=== PATIENT | female | born 1995 | race African-American/Black ===

== ENCOUNTER 2016-05-30 04:57 | Emergency (ER) | payer SELFPAY ==
[~2016-05-30] VITALS: Ht 170.2 cm; Wt 79.1 kg
[~2016-05-30 04:57] MED LIST: CIPR-9 PO
[2016-05-30 05:03] VITALS: BP 131/87; PULSE 69; RESP 20; TEMP 97.4; O2SAT 100
[2016-05-30] MEDS ORDERED: CORICAP PO (05:18)
[2016-05-30] MEDS ORDERED: PHEN1LIQ60 (05:18)
[2016-05-30] MEDS ORDERED: IBUP-232 PO (05:28)
[2016-05-30] MEDS ORDERED: IBUPROFEN 800 MG TAB PO ONE (05:30)
--- NOTE | 2016-05-30 05:30 | PD ---
HPI Chief Complaint: Cold / Flu Symptoms Time Seen by Provider: 05:16 Travel History International Travel<30 days: No Contact w/Intl Traveler<30days: No Traveled to known affect area: No History of Present Illness HPI The patient is a 20-year-old female that complains of a mild cough, chest congestion since this morning. The patient's main complaint is it hurts in the substernal area to take a deep breath. She denies any fever, chills or shortness of breath. She denies any nausea, vomiting or diarrhea. She states is no possibility of and she does not smoke. 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 She denies any sore throat or ear pain. [facility] Past Medical History ADD: Yes Diminished Hearing: No Immunizations Current: No ?: Unknown LMP: 04/24/16 : 0 Para: 0 Miscarriage: 0 : 0 Social History Alcohol Use: No Tobacco Use: No Substance Use: No Allergies-Medications (Allergen,Severity, Reaction): Coded Allergies: No Known Allergies (Verified , 01/29/16) Reported Meds & Prescriptions Reported Meds & Active Scripts Active Reported Nyquil Severe Cold/Flu Liq (Lddenagnqamld-Lfasqrnlam-QN-Apap Liq) 5-6.25-10-325 Mg/15 Ml Liq Coricidin HBP Chest Congestion (Dextromethorphan-Guaifenesin) 10-200 Mg Cap 1 Cap PO Q4H PRN Review of Systems Except as stated in HPI: all other systems reviewed are Neg Physical Exam Narrative GENERAL: The patient is alert, oriented 3 in no respiratory distress. Her vital signs are normal. Oximetry is 100%. SKIN: Warm and dry. HEAD: Atraumatic. Normocephalic. EYES: Pupils equal and round. No scleral icterus. No injection or drainage. ENT: No nasal bleeding or discharge. Mucous membranes pink and moist. Neither tympanic membrane can be seen due to wax in the canals. The throat shows no erythema, exudate or abscess and appears normal. NECK: Trachea midline. No JVD. There is no meningismus and no enlarged nodes are present on the anterior cervical chain. CARDIOVASCULAR: Regular rate and rhythm. No murmur appreciated. RESPIRATORY: No accessory muscle use. Clear to auscultation. Breath sounds equal bilaterally. GASTROINTESTINAL: Abdomen soft, non-tender, nondistended. Hepatic and splenic margins not palpable. No guarding or rebound is present. MUSCULOSKELETAL: No obvious deformities. No clubbing. No cyanosis. No edema. NEUROLOGICAL: Awake and alert. No obvious cranial nerve deficits. Motor grossly within normal limits. Normal speech. PSYCHIATRIC: Appropriate mood and affect; insight and judgment normal. Data Data Last Documented VS Vital Signs Date Time Temp Pulse Resp B/P Pulse Ox O2 Delivery O2 Flow Rate FiO2 05/30/16 05:15 18 100 Room Air 05/30/16 05:03 97.4 69 131/87 [facility] Medical Decision Making Medical Screen Exam Complete: Yes Emergency Medical Condition: Yes Medical Record Reviewed: Yes Differential Diagnosis Pneumonia, bronchitis, viral upper respiratory infection, pharyngitis, ear infection, intestinal infection Narrative Course The patient appears to have a viral upper respiratory infection. Plan: She will get a prescription for Motrin and she will get a 2 day work excuse. She is to increase liquids and rest during these 2 days. Diagnosis Primary Impression: Viral upper respiratory infection Additional Instructions: I am hoping that Motrin will help. Chest discomfort. Take the Motrin regularly , 1 tablet 3 times daily. Also, we will give you a 2 day work excuse. Remember that viruses reduce your resistance to pneumonias, ear infections and other bacterial infections and should you get worse, return to the emergency department or follow-up with your primary care physician next week. In these 2 days off IOP rest and increase her liquid intake and allow your body to fight this virus. Med/Other Pt SpecificInfo: Prescription(s) given Scripts Ibuprofen 600 Mg [id number] Mg PO TID #30 TAB Ref 0 Prov:Holden Mills MD 05/30/16 Disposition: DISCHARGE HOME Condition: Stable Holden Mills MD May 30, 2016 05:30
== END 2016-05-30 05:45 | disposition home or self-care (01) ==
LOC: PHED 04:57
DX: J06.9 Acute upper respiratory infection, unspecified (principal)
CPT/HCPCS: 99283

== ENCOUNTER 2016-06-24 12:36 | Emergency (ER) | payer SELFPAY ==
[~2016-06-24] VITALS: Ht 170.2 cm; Wt 79.0 kg
[~2016-06-24 12:36] MED LIST changes: -CIPR-9 PO; +CORICAP PO; +IBUP-232 PO; +PHEN1LIQ60
[2016-06-24 12:43] VITALS: BP 124/73; PULSE 87; RESP 16; TEMP 98.1; O2SAT 100
[2016-06-24 13:01] LABS: BLOOD, URINE LARGE (NEG); GLUCOSE,URINE NEG (NEG); KETONE, URINE NEG (NEG)
[2016-06-24] MEDS ORDERED: SODIUM CHLORIDE 0.9% FLUSH 5 ML FLUSH IVF PRN (13:15)
[2016-06-24 13:18] LABS: METHOD OF COLLECTION CLEAN CATCH; NITRITE,URINE POS (NEG)
[2016-06-24 13:19] LABS: RBC, URINE INNUM /hpf (0-3); SQUAMOUS EPITHELIAL CELL URINE > 8 /hpf (0-5); URINE COLOR YELLOW (YELLW/STRAW)
--- NOTE | 2016-06-24 13:19 | PD ---
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 Pain started last night, is constant, sharp, moderate, worse with urination. She noticed some pinkish vaginal discharge. No foul order. Last measured. Was 04/30. No fevers or chills. No history of abdominal surgeries. She is requesting a blood test for . [facility] Past Medical History ADD: Yes Diminished Hearing: No Immunizations Current: No Tetanus Vaccination: < 5 Years Influenza Vaccination: No ?: Unknown LMP: 04/30/16 : 0 Para: 0 Miscarriage: 0 : 0 Past Surgical History Surgical History: No Previous Surgery Social History Alcohol Use: No Tobacco Use: No Substance Use: No Allergies-Medications (Allergen,Severity, Reaction): Coded Allergies: No Known Allergies (Verified , 06/24/16) Reported Meds & Prescriptions Reported Meds & Active Scripts Active No Active Prescriptions or Reported Medications Review of Systems Except as stated in HPI: all other systems reviewed are Neg Physical Exam Narrative GENERAL: Well-developed, well-nourished, comfortable, no acute distress. SKIN: Warm and dry. HEAD: Atraumatic. Normocephalic. EYES: Pupils equal and round. No scleral icterus. No injection or drainage. ENT: Mucous membranes pink and moist. CARDIOVASCULAR: Regular rate and rhythm. RESPIRATORY: No accessory muscle use. Clear to auscultation. Breath sounds equal bilaterally. GASTROINTESTINAL: Abdomen soft, nondistended. Mild suprapubic tenderness without peritoneal signs. Rest of abdomen is soft and nontender. 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 Normal external genitalia. Normal cervix. Scant whitish/fcd-jkpo-yatnxvoh vaginal discharge. Mild suprapubic tenderness. No adnexal masses or tenderness. MUSCULOSKELETAL: No obvious deformities. No clubbing. No cyanosis. No edema. NEUROLOGICAL: Awake and alert. No obvious cranial nerve deficits. Motor grossly within normal limits. Normal speech. PSYCHIATRIC: Appropriate mood and affect; insight and judgment normal. Data Data Last Documented VS Vital Signs Date Time Temp Pulse Resp B/P Pulse Ox O2 Delivery O2 Flow Rate FiO2 06/24/16 12:43 98.1 87 16 124/73 100 Orders Urinalysis - C+S If Indicated (06/24/16 12:46) Ed Urine Pregnancytest Poc (06/24/16 12:59) Beta Hcg (Quant/Titer) (06/24/16 13:11) Complete Blood Count With Diff (06/24/16 13:11) Comprehensive Metabolic Panel (06/24/16 13:11) Iv Access Insert/Monitor (06/24/16 13:11) Ecg Monitoring (06/24/16 13:11) Oximetry (06/24/16 13:11) Sodium Chloride 0.9% Flush (Ns Flush) (06/24/16 13:15) Gc And Chlamydia Pcr (06/24/16 13:16) Type And Screen (06/24/16 13:16) Wet Prep Profile (06/24/16 13:16) Urine Culture (06/24/16 12:55) Ceftriaxone Inj (Rocephin Inj) (06/24/16 13:30) Labs Laboratory Tests Test 06/24/16 06/24/16 06/24/16 12:55 13:20 13:35 Urine Collection Type CLEAN CATCH Urine Color YELLOW Urine Turbidity MOD Urine pH 7.0 Urine Specific Cummings 1.023 Urine Protein 300 OR GREATER mg/dL Urine Glucose (UA) NEG mg/dL Urine Ketones NEG mg/dL Urine Occult Blood LARGE Urine Nitrite POS Urine Bilirubin NEG Urine Leukocyte Esterase SMALL Urine RBC INNUM /hpf Urine WBC 50-99 /hpf Urine Squamous Epithelial > 8 /hpf Cells Urine Bacteria OCC /hpf Microscopic Urinalysis Comment CULTURE INDICATED Urine Collection Time 12:55 White Blood Count 8.1 TH/MM3 Red Blood Count 4.16 MIL/MM3 Hemoglobin 11.9 GM/DL Hematocrit 34.2 % Mean Corpuscular Volume 82.1 FL Mean Corpuscular Hemoglobin 28.6 PG Mean Corpuscular Hemoglobin 34.9 % Concent Red Cell Distribution Width 12.2 % Platelet Count 282 TH/MM3 Mean Platelet Volume 7.5 FL Neutrophils (%) (Auto) 65.2 % Lymphocytes (%) (Auto) 23.8 % Monocytes (%) (Auto) 8.6 % Eosinophils (%) (Auto) 1.1 % Basophils (%) (Auto) 1.3 % Neutrophils # (Auto) 5.3 TH/MM3 Lymphocytes # (Auto) 1.9 TH/MM3 Monocytes # (Auto) 0.7 TH/MM3 Eosinophils # (Auto) 0.1 TH/MM3 Basophils # (Auto) 0.1 TH/MM3 CBC Comment DIFF FINAL Differential Comment Sodium Level 141 MEQ/L Potassium Level 3.9 MEQ/L Chloride Level 104 MEQ/L Carbon Dioxide Level 30.4 MEQ/L Anion Gap 7 MEQ/L Blood Urea Nitrogen 8 MG/DL Creatinine 0.75 MG/DL Estimat Glomerular Filtration 116 ML/MIN Rate Random Glucose 94 MG/DL Calcium Level 8.5 MG/DL Total Bilirubin 0.4 MG/DL Aspartate Amino Transf 10 U/L (AST/SGOT) Alanine Aminotransferase 19 U/L (ALT/SGPT) Alkaline Phosphatase 77 U/L Total Protein 7.6 GM/DL Albumin 3.8 GM/DL Human Chorionic Gonadotropin, LESS THAN 1 Quant MIU/ML Clue Cells (Wet Prep) NONE SEEN Vaginal Trichomonas (Wet Prep) NONE SEEN Vaginal Yeast (Wet Prep) NONE SEEN MDM Medical Decision Making Medical Screen Exam Complete: Yes Emergency Medical Condition: Yes Medical Record Reviewed: Yes Differential Diagnosis UTI, cystitis, ectopic , , PID, BV, appendicitis less likely Narrative Course Vital signs show heart rate 87, blood pressure 124/73, pulse ox 100% on room air , oral temp of 98.1F. CBC is unremarkable. CMP is unremarkable. Beta hCG is negative. UA is suggestive of UTI with hematuria, small leukocyte esterase, positive nitrites, 50-99 wbc's. Blood prep is negative for yeast, negative for clue cells, negative for Trichomonas. The patient was given a dose of Rocephin and will be discharged home with a prescription for Bactrim for her UTI. Her abdominal exam is benign. There are no peritoneal signs. I do not suspect an acute intra-abdominal process to warrant CT scan at this time. She was instructed to follow-up with a primary care physician this week. She was informed on when to return to the emergency department. She verbalizes understanding and agreement with plan. Diagnosis Primary Impression: UTI (urinary tract infection) Qualified Code: N30.01 - Acute cystitis with hematuria Referrals: [facility] 3 days Primary Care Physician 3 days Additional Instructions: Take antibiotic as prescribed. Follow-up with a primary care physician this week. Return to the emergency department for worsening symptoms or any other concerns. Scripts Sulfamethoxazole-Trimethoprim (Bactrim DS)800-160 Mg Tab1 Tab PO BID #14 TAB Ref 0 Prov:Aldo Hidalgo MD 06/24/16 Disposition: 01 DISCHARGE HOME Condition: Stable Aldo Hidalgo MD Jun 24, 2016 13:19
[2016-06-24 13:20] LABS: BACTERIA, URINE OCC /hpf; COMMENT (UR) CULTURE INDICATED; CULTURE IF INDICATED CULTURE INDICATED
[2016-06-24] MEDS ORDERED: cefTRIAXone INJ 1,000 MG in SODIUM CHLORIDE 0.9% INJ 100 ML IV ONE (13:30)
[2016-06-24 13:33] LABS: AUTOMATED NEUTROPHIL # 5.3 TH/MM3 (1.8-7.7); BASOPHIL # 0.1 TH/MM3 (0-0.2); BASOPHIL % 1.3 % (0.0-2.0); EOSINOPHIL # 0.1 TH/MM3 (0-0.4); EOSINOPHIL % 1.1 % (0.0-4.0); HEMATOCRIT 34.2 % (35.0-46.0); HEMO FLAGS DIFF FINAL; LYMPH % 23.8 % (9.0-44.0); LYMPHOCYTE # 1.9 TH/MM3 (1.0-4.8); MEAN CELL VOLUME 82.1 FL (80.0-100.0); MEAN CORPUSCULAR HEMOGLOBIN 28.6 PG (27.0-34.0); MEAN CORPUSCULAR HGB CONC 34.9 % (32.0-36.0); MONO % 8.6 % (0.0-8.0); NEUT % 65.2 % (16.0-70.0); PLATELET COUNT 282 TH/MM3 (150-450); RED BLOOD COUNT 4.16 MIL/MM3 (4.00-5.30); RED CELL DISTRIBUTION WIDTH 12.2 % (11.6-17.2); WHITE BLOOD COUNT 8.1 TH/MM3 (4.0-11.0)
[2016-06-24 13:38] LABS: CHLORIDE 104 MEQ/L (98-107); POTASSIUM 3.9 MEQ/L (3.5-5.1); SODIUM (NA) 141 MEQ/L (136-145)
[2016-06-24 13:41] LABS: ANION GAP 7 MEQ/L (5-15); BICARBONATE 30.4 MEQ/L (21.0-32.0); BLOOD UREA NITROGEN 8 MG/DL (7-18)
[2016-06-24 13:44] LABS: ALT (GPT) 19 U/L (10-53); AST (GOT) 10 U/L (15-37)
[2016-06-24 13:45] LABS: GLOMERULAR FILTRATION RATE 116 ML/MIN (>89)
[2016-06-24 13:46] LABS: TOTAL BILIRUBIN ADULT 0.4 MG/DL (0.2-1.0)
[2016-06-24 13:47] LABS: ALKALINE PHOSPHATASE 77 U/L (45-117)
[2016-06-24 13:49] LABS: BETA HCG QUANT LESS THAN 1 MIU/ML (0-5)
[2016-06-24] MEDS ORDERED: BACT800T5 PO (13:57)
[2016-06-24 14:25] VITALS: BP 140/79; PULSE 85; RESP 14; O2SAT 98
[2016-06-24 18:10] LABS: CHLAMYDIA PCR NOT DETECTED (NOT DETECT); NEISSERIA PCR NOT DETECTED (NOT DETECT)
== END 2016-06-24 14:55 | disposition home or self-care (01) ==
LOC: PHED 12:36
DX: N30.01 Acute cystitis with hematuria (principal); B96.20 Unspecified Escherichia coli [E. coli] as the cause of diseases classified elsewhere; N89.8 Other specified noninflammatory disorders of vagina; Z86.59 Personal history of other mental and behavioral disorders
CPT/HCPCS: 80053; 81001; 84702; 84703; 85025; 86850; 86900; 86901; 87077; 87086; 87186; 87210; 87491; 87591; 96365; 99284; J0696

== ENCOUNTER 2016-08-07 22:29 | Emergency (ER) | payer SELFPAY ==
[~2016-08-07] VITALS: Ht 170.2 cm; Wt 82.0 kg
[~2016-08-07 22:29] MED LIST changes: +BACT800T5 PO; -CORICAP PO; -IBUP-232 PO; -PHEN1LIQ60
[2016-08-07 22:35] VITALS: BP 125/77; PULSE 82; RESP 18; TEMP 98.2; O2SAT 100
[2016-08-07] MEDS ORDERED: MECL-62 PO (23:30)
--- NOTE | 2016-08-07 23:31 | PD ---
HPI Chief Complaint: Dizziness Time Seen by Provider: 23:18 Travel History International Travel<30 days: No Contact w/Intl Traveler<30days: No Traveled to known affect area: No History of Present Illness HPI This 21-year-old female is complaining of vertigo last 2 or 3 days. His been fairly constant. It happens at rest and with. She does not have any tinnitus. She does not recall having this before. She has not had a cold recently she has no numbness or tingling. He is unable to walk fine. She does sometimes get nauseated with the vertigo. PFSH Past Medical History ADD: Yes Diminished Hearing: No Immunizations Current: No Influenza Vaccination: No (Patient refusal) ?: Unknown LMP: 05/31/2016 : 0 Para: 0 Miscarriage: 0 : 0 Social History Alcohol Use: No Tobacco Use: No Substance Use: No Allergies-Medications (Allergen,Severity, Reaction): Coded Allergies: No Known Allergies (Verified , 06/24/16) Reported Meds & Prescriptions Reported Meds & Active Scripts Active Bactrim DS (Sulfamethoxazole-Trimethoprim) 800-160 Mg Tab 1 Tab PO BID Review of Systems General / Constitutional: No: Fever, Chills Eyes: No: Diploplia HENT: No: Sore Throat, Earache Cardiovascular: No: Chest Pain or Discomfort, Palpitations Respiratory: No: Cough Gastrointestinal: No: Nausea, Vomiting Genitourinary: No: Urgency, Frequency Musculoskeletal: No: Myalgias Skin: No Rash Neurologic: No: Weakness Endocrine: No: Heat Intolerance, Cold Intolerance Hematologic/Lymphatic: No: Easy Bruising Physical Exam Narrative GENERAL: Well-developed female SKIN: Focused skin assessment warm/dry. HEAD: Atraumatic. Normocephalic. EYES: Pupils equal and round. No scleral icterus. No injection or drainage. There is some left beating nystagmus ENT: No nasal bleeding or discharge. Mucous membranes pink and moist. NECK: Trachea midline. No JVD. CARDIOVASCULAR: Regular rate and rhythm. No murmur appreciated. RESPIRATORY: No accessory muscle use. Clear to auscultation. Breath sounds equal bilaterally. GASTROINTESTINAL: Abdomen soft, non-tender, nondistended. Hepatic and splenic margins not palpable. MUSCULOSKELETAL: No obvious deformities. No clubbing. No cyanosis. No edema. NEUROLOGICAL: Awake and alert. No obvious cranial nerve deficits. Motor grossly within normal limits. Normal speech. PSYCHIATRIC: Appropriate mood and affect; insight and judgment normal. Data Data Last Documented VS Vital Signs Date Time Temp Pulse Resp B/P Pulse Ox O2 Delivery O2 Flow Rate FiO2 08/07/16 23:05 76 18 100 Room Air 08/07/16 22:35 98.2 125/77 MDM Medical Decision Making Medical Screen Exam Complete: Yes Emergency Medical Condition: Yes Medical Record Reviewed: Yes Differential Diagnosis Differential includes labyrinthitis, BPPV. Narrative Course This vertigo is fairly constant and more consistent with labyrinthitis. There are no other neurologic findings Diagnosis Primary Impression: Labyrinthitis Qualified Code: H83.09 - Labyrinthitis, unspecified laterality Scripts Meclizine 25 Mg Tab25 Mg PO TID PRN (VERTIGO) #30 TAB Ref 0 Prov:Darrin Carrizales MD 08/07/16 Darrin Carrizales MD Aug 07, 2016 23:31
[2016-08-07] MEDS ORDERED: MECLIZINE HCL 25 MG TAB PO ONE (23:45)
== END 2016-08-07 23:52 | disposition home or self-care (01) ==
LOC: PHED 22:29
DX: H83.09 Labyrinthitis, unspecified ear (principal)
CPT/HCPCS: 84703; 99283

== ENCOUNTER 2017-06-06 09:49 | Emergency (ER) | payer SELFPAY ==
[~2017-06-06 09:49] MED LIST changes: -BACT800T5 PO; +MECL-62 PO
[2017-06-06 09:52] VITALS: BP 150/78; PULSE 80; RESP 16; TEMP 99.6; O2SAT 100
--- NOTE | 2017-06-06 10:21 | PD ---
HPI Chief Complaint: Cold / Flu Symptoms Time Seen by Provider: 10:13 Travel History International Travel<30 days: No Contact w/Intl Traveler<30days: No Traveled to known affect area: No History of Present Illness HPI 22-year-old female presents for evaluation. For the past 2 days she has had cough, congestion, chills, myalgias, sore throat. Cough is productive with sputum. Symptoms are mild to moderate, no aggravating or alleviating factors. She has been using [id number] TheraFlu and Mucinex but symptoms persist which prompted evaluation. Denies any sick contacts or recent travel. No other complaints at this time. PFSH Past Medical History ADD: Yes Diminished Hearing: No Immunizations Current: No ?: Not LMP: UNKNOWN : 0 Para: 0 Miscarriage: 0 : 0 Social History Alcohol Use: No Tobacco Use: No Substance Use: No Allergies-Medications (Allergen,Severity, Reaction): Coded Allergies: No Known Allergies (Verified , 08/08/16) Reported Meds & Prescriptions Reported Meds & Active Scripts Active Tamiflu (Oseltamivir Phosphate) 75 Mg Cap 75 Mg PO BID 5 Days Review of Systems General / Constitutional: Positive: Chills HENT: Positive: Sore Throat, Rhinitis, Rhinorrhea, Congestion Respiratory: Positive: Cough Gastrointestinal: No: Nausea, Vomiting, Abdominal Pain Physical Exam Narrative GENERAL: Well-developed well-nourished female in no acute distress SKIN: Warm and dry. HEAD: Atraumatic. Normocephalic. EYES: Pupils equal and round. No scleral icterus. No injection or drainage. ENT: No nasal bleeding or discharge. Mucous membranes pink and moist. No oral pharyngeal erythema or exudate. NECK: Trachea midline. No JVD. Neck supple with full range of motion. No lymphadenopathy. CARDIOVASCULAR: Regular rate and rhythm. No murmur appreciated. RESPIRATORY: No accessory muscle use. Clear to auscultation. Breath sounds equal bilaterally. No crackles no wheezing or rhonchi Data Data Last Documented VS Vital Signs Date Time Temp Pulse Resp B/P (MAP) Pulse Ox O2 Delivery O2 Flow Rate FiO2 06/06/17 09:52 99.6 80 16 150/78 (102) 100 Room Air Orders Orders Influenzae A/B Antigen (06/06/17 10:11) Ed Discharge Order (06/06/17 11:02) MDM Medical Decision Making Medical Screen Exam Complete: Yes Emergency Medical Condition: Yes Medical Record Reviewed: Yes Differential Diagnosis Influenza, pneumonia, bronchitis, sinusitis, pharyngitis Narrative Course The patient is positive for influenza A. She will be started on Tamiflu. Diagnosis Primary Impression: Influenza A Additional Instructions: Medication as prescribed. Start today. Stay well hydrated well-nourished. Take Tylenol or Motrin for fever. Return for any emergent medical conditions. Med/Other Pt SpecificInfo: Prescription(s) given Scripts Oseltamivir (Tamiflu) 75 Mg Cap 75 MG PO BID for Mgmt Viral Infection for 5 Days, #10 CAP 0 Refills Prov: Mark Singer MD 06/06/17 Disposition: 01 DISCHARGE HOME Condition: Stable Chidi Vazquez Jun 06, 2017 10:21
[2017-06-06] MEDS ORDERED: OSEL75 PO (10:59)
== END 2017-06-06 11:31 | disposition home or self-care (01) ==
LOC: NEPK 09:49
DX: J09.X2 Influenza due to identified novel influenza A virus with other respiratory manifestations (principal); F98.8 Other specified behavioral and emotional disorders with onset usually occurring in childhood and adolescence
CPT/HCPCS: 87804; 99283

== ENCOUNTER 2017-07-03 09:53 | Emergency (ER) | payer SELFPAY ==
[~2017-07-03] VITALS: Ht 170.2 cm; Wt 85.0 kg
[~2017-07-03 09:53] MED LIST changes: -MECL-62 PO; +OSEL75 PO
[2017-07-03 09:57] VITALS: BP 160/93; PULSE 87; RESP 14; TEMP 98.7; O2SAT 100
[2017-07-03] MEDS ORDERED: PRED20 PO (11:30)
--- NOTE | 2017-07-03 11:31 | PD ---
HPI Chief Complaint: Skin Problem Time Seen by Provider: 10:39 Travel History International Travel<30 days: No Contact w/Intl Traveler<30days: No Traveled to known affect area: No History of Present Illness HPI 22-year-old female here possible allergic reaction since last night. Patient reports she developed a pruritic rash to her back last week which she believed was possibly insect bites. The rash responded to OTC Benadryl and calamine lotion. Yesterday the rash reemerged to her back. She denies wheezing, shortness of breath, oral swelling. Symptom severity is mild. No aggravating or alleviating factors. Denies any new medications, new foods, new detergents or body lotions. No prior allergic reactions. PFSH Past Medical History ADD: Yes Diminished Hearing: No Immunizations Current: No ?: Unknown : 0 Para: 0 Miscarriage: 0 : 0 Past Surgical History Surgical History: No Previous Surgery Social History Alcohol Use: No Tobacco Use: No Substance Use: No Allergies-Medications (Allergen,Severity, Reaction): Coded Allergies: No Known Allergies (Verified Adverse Reaction, Unknown, 07/03/17) Reported Meds & Prescriptions Reported Meds & Active Scripts Active No Active Prescriptions or Reported Medications Review of Systems Except as stated in HPI: all other systems reviewed are Neg General / Constitutional: No: Fever Eyes: No: Visual changes HENT: No: Headaches Cardiovascular: No: Chest Pain or Discomfort Respiratory: No: Shortness of Breath Gastrointestinal: No: Abdominal Pain Genitourinary: No: Dysuria Musculoskeletal: No: Pain Skin: Positive Rash Physical Exam Narrative GENERAL: Alert and well-appearing 22-year-old female SKIN: Warm and dry. Localized area of hives to the low back. HEAD: Normocephalic. EYES: No injection or drainage. MOUTH: No oral swelling. Uvula is midline. Airway is patent. NECK: Supple CARDIOVASCULAR: Regular rate and rhythm without murmurs, gallops, or rubs. RESPIRATORY: Breath sounds equal bilaterally. No accessory muscle use. No wheezing GASTROINTESTINAL: Abdomen soft, non-tender, nondistended. MUSCULOSKELETAL: No cyanosis, or edema. BACK: Nontender without obvious deformity. No CVA tenderness. Data Data Last Documented VS Vital Signs Date Time Temp Pulse Resp B/P (MAP) Pulse Ox O2 Delivery O2 Flow Rate FiO2 07/03/17 09:57 98.7 87 14 160/93 (115) 100 Orders Orders Ed Urine Pregnancytest Poc (07/03/17 11:15) MDM Medical Decision Making Medical Screen Exam Complete: Yes Emergency Medical Condition: Yes Differential Diagnosis Allergic reaction, idiopathic urticaria, inflamed insect bites Narrative Course 22-year-old female here with localized area of hives to the low back. No oral airway swelling. No wheezing. She is well-appearing. She'll be treated with steroids and Benadryl. Diagnosis Primary Impression: Urticaria Referrals: Primary Care Physician Additional Instructions: Steroid as directed. Benadryl 25 mg every 6 hours as needed for itching Follow-up with her primary doctor. Return to emergency department if new or worsening symptoms Scripts Prednisone (Prednisone) 20 Mg Tab 40 MG PO DAILY, #10 TAB 0 Refills Take 40 mg (2 tablets) daily for 5 days Prov: Kandace William 07/03/17 Kandace William Jul 03, 2017 11:31
== END 2017-07-03 12:06 | disposition home or self-care (01) ==
LOC: NEPK 09:53
DX: L50.9 Urticaria, unspecified (principal)
CPT/HCPCS: 84703; 99283